=== PATIENT | male | born 1975 | race Caucasian/White ===

== ENCOUNTER → 2019-11-03 | Outpatient (CLI) | payer BC | LOC: SJCVCIMAG 07:23 | PROVIDERS: ATTEND Internal Medicine | DX: I07.1 Rheumatic tricuspid insufficiency (principal); R00.0 Tachycardia, unspecified; E78.5 Hyperlipidemia, unspecified; E11.9 Type 2 diabetes mellitus without complications; Z87.891 Personal history of nicotine dependence ==

== ENCOUNTER → 2019-11-09 | Outpatient (CLI) | payer BC ==
[~2019-11-09] VITALS: Ht 190.5 cm; Wt 147.0 kg
[~2019-11-09] MED LIST: DESYREL150 MG PO; HYDROCHLOROTHIA25 M2 PO; ISOSORBIDE DINI30 MG PO; LISINOPRIL2.5 MG PO; NORVASC 2.5 MG2.5 M1 PO; PROTONIX40 M2 PO
[2019-11-09 11:05] VITALS: BP 124/76
[2019-11-09 11:40] LABS: HEMATOCRIT 36.3 % (42.0-52.0); HEMOGLOBIN 12.2 gm/dL (14.0-18.0); MCH 27.7 pg (26.0-34.0); MCHC 33.6 g/dL (28.0-37.0); MCV 82.3 fL (80.0-100.0); RBC 4.41 mil/uL (4.50-6.00); RDW 16.5 % (10.5-14.5); WBC 3.8 thou/uL (4.0-11.0)
[2019-11-09 11:53] LABS: CALCIUM 9.3 mg/dL (8.5-10.1); CREATININE 0.9 mg/dL (0.7-1.3); POTASSIUM 4.1 mmol/L (3.5-5.1)
--- NOTE | 2019-11-10 15:20 | CATHLAB ---
[facility] [place] [address] INVASIVE PROCEDURE REPORT Name: LEXY CUTLER Room #: PRE HUSAM Mendoza#: [id number] Admission: Attend Phys: Po Dent Discharge: Date of : 71 Report #: [id number] THIS REPORT FOR: cc: ANDRE BRONSON FAMILY PHYSICIAN or PCP Po Dent MD ~ APPROVED REPORT Study performed: 11/09/2019 12:42:01 Patient Details Patient Status: Out-Patient Room #: The patient is a 44 year-old male Event Personnel Po Dent Cat And Dog Bather, Karin Vazquez RTR, CANE FLUME WATCHER Monitor, Yazan Logan RN RN, Renetta Carranza RTR Scrub Procedures Performed Art Access - R femoral artery* Left Heart Cath w/or w/o Coronaries [id number] [facility] [id number] Initial Mod Sed Same Phys/QHP Gr5y [id number] Mod Sed Same Phys/QHP Ea [id number] Hemostasis with Manual pressure, supervision of conscious sedation Indication Positive stress test, Chest pain Procedure Narrative The Right Groin^ was infiltrated with 1% Lidocaine subcutaneous anesthesia. A PINNACLE 4FR Sheath #[id number] sheath was inserted into the RFA^. Coronary angiography was performed using coronary diagnostic catheters. The right coronary system was accessed and visualized with a JR4 catheter. The left coronary system was accessed and visualized with a JL4 catheter. The left ventricle was accessed and visualized with a ANGLED PIGTAIL catheter. Left ventricular/Aortic Valve gradient assessed via catheter pullback. Hemostasis was obtained with manual pressure following sheath removal without any complications. The patient tolerated the procedure well and there were no complications associated with the procedure. There was no hematoma. Intraoperative Conscious Sedation Sedation start time: 12:55 Case end Time: [facility] [address] [place] [address] INVASIVE PROCEDURE REPORT [id number] Admission: Attend Phys: Po Kaplan Discharge: Date of : 71 Report #: [id number] 13:29 Versed 4 mg Fluoro Time: 2.80 minutes Dose: DAP 7757.40 cGycm2 1277 mGy Contrast Type and Amount: Omnipaque 40 ml Coronary Angiography The patient's coronary anatomy is right dominant. Diagnostic Cath Left Main Moderate to large caliber vessel of normal origin bifurcates left into descending left circumflex. Free of high-grade disease. LAD Moderate to large caliber type III vessel which courses in the interventricular sulcus. In the proximal portion there is irregularities of approximately 30% at worst. And continues on giving rise to diagonal branch in its midportion bifurcates into a second diagonal and in the terminal portion of the LAD hooking the apex and terminating the posterior aspect of the left ventricle. No high-grade lesions are identified are noted Diagonal 1 Moderate caliber vessel coursing on the anterolateral wall free of high-grade disease Diagonal 2 Small to moderate caliber vessel coursing on the distal anterolateral wall with only luminal irregularities but no high-grade lesions noted Circumflex Moderate to large caliber vessel gives rise to a moderate caliber first marginal branch which has a tortuous course and on the lateral aspect of the ventricle but is free of high-grade disease. The circumflex proper then continues on in the AV groove giving rise to a second marginal branch along the lateral aspect of the ventricle and is a bifurcating vessel free of high-grade disease OM1 Moderate caliber vessel without high-grade lesions noted but very tortuous in its course towards the apex OM2 Moderate caliber bifurcating vessel free of high-grade lesion Right Coronary Moderate caliber dominant vessel normal origin. Courses in the AV groove to the acute marginal having giving rise to some small RV and RA branches. And continues to the crux of the heart giving rise to posterior descending artery and terminates a moderate to large caliber posterolateral branch with numerous branches noted. Is free of significant lesions or high-grade stenosis R PDA Moderate caliber vessel without significant stenosis noted to courses in the posterior interventricular sulcus towards the apex [facility] [address] [place] [address] INVASIVE PROCEDURE REPORT Name: LEXY CUTLER Room #: PRE Kelly#: [id number] Admission: Attend Phys: Po Kaplan Discharge: Date of : 71 Report #: [id number] Left Ventriculography Left Ventriculography was not performed. Hemodynamics The aortic pressure is 118/76 mmHg with a mean of 98 mmHg. The left ventricular pressure is 127/5 mmHg with a mean of mmHg. The left ventricular end diastolic pressure is 22 mmHg. Conclusion 1. Minimal coronary disease essentially normal without any obstructive lesions noted 2. Tortuous vessels identified without obstructive lesions as mentioned 3. Normal hemodynamics Recommendations Cardiac Risk Reduction Program Medical Therapy <ELECTRONICALLY SIGNED> By: Po Dent MD 11/10/19 1520 1520 1520 Po Dent MD /INF
== END | disposition home or self-care (01) ==
LOC: CATH 08:46
PROVIDERS: ATTEND Internal Medicine
DX: R07.9 Chest pain, unspecified (principal); R94.39 Abnormal result of other cardiovascular function study; I10 Essential (primary) hypertension; D64.9 Anemia, unspecified; E78.5 Hyperlipidemia, unspecified; E11.9 Type 2 diabetes mellitus without complications; K21.9 Gastro-esophageal reflux disease without esophagitis; E66.9 Obesity, unspecified; G47.00 Insomnia, unspecified; E66.09 Other obesity due to excess calories; Z98.890 Other specified postprocedural states; Z79.899 Other long term (current) drug therapy; Z87.891 Personal history of nicotine dependence; Z68.30 Body mass index [BMI] 30.0-30.9, adult